=== PATIENT | female | born 2000 | race Two or more races ===

== ENCOUNTER 2021-05-24 13:11 | Observation (INO) | payer SELFPAY ==
[~2021-05-24] VITALS: Ht 165.1 cm; Wt 84.8 kg
[2021-05-24 15:40] VITALS: BP 109/61
[2021-05-24 15:54] LABS: Urine Bacteria FEW /hpf (None Seen); Urine Blood Negative /uL (Negative); Urine Mucus FEW (None Seen); Urine Specific Gravity 1.028 (1.001-1.035); Urine WBC 7 /hpf (0 - 5)
[2021-05-24] MEDS ORDERED: ceFAZolin 1GM/50ML 50 ML IV ONE (17:00)
[2021-05-24] MEDS ORDERED: LACTATED RINGER'S 1,000 ML IV ONE (17:00)
[2021-05-24] MEDS ORDERED: ceFAZolin 1GM VL ONE (17:23)
[2021-05-24] MEDS ORDERED: D5W 5% 100 ML IV ONE (17:23)
[2021-05-24] MEDS ORDERED: ceFAZolin 2 GM in D5W 5% 100 ML IV ONE (17:30)
[2021-05-24] MEDS ORDERED: CEPH-322 PO (17:55)
[2021-05-24] MEDS ORDERED: ACETAMINOPHEN 325 MG TAB PO ONE (18:50)
== END 2021-05-24 20:07 | disposition home or self-care (01) ==
LOC: ER 13:11 → LDRP 15:59
PROVIDERS: ADMIT Obstetrics & Gynecology; ATTEND Obstetrics & Gynecology
DX: O99.891 Other specified diseases and conditions complicating pregnancy (principal); M54.9 Dorsalgia, unspecified; O21.2 Late vomiting of pregnancy; O26.892 Other specified pregnancy related conditions, second trimester; R68.83 Chills (without fever); O23.12 Infections of bladder in pregnancy, second trimester; N30.00 Acute cystitis without hematuria; O99.112 Other diseases of the blood and blood-forming organs and certain disorders involving the immune mechanism complicating pregnancy, second trimester; D84.9 Immunodeficiency, unspecified; Z3A.27 27 weeks gestation of pregnancy; Z79.899 Other long term (current) drug therapy; Z98.890 Other specified postprocedural states
CPT/HCPCS: 36415; 59025; 81001; 81002; 87426; 94760; 96361; 96365; 99284; G0378; J0690; J7060; 96360; 96374